=== PATIENT | female | born 1965 | race Caucasian/White ===

== ENCOUNTER 2016-09-03 22:48 | Emergency (ER) | payer OTHER ==
[~2016-09-03] VITALS: Ht 165.1 cm; Wt 45.4 kg
[~2016-09-03 22:48] MED LIST: BUPR100T4 PO; CEPH-570 PO; FAMO20TA41 PO; HYDR-552 PO; NITR-84 PO; ONDA4TAB8 PO
[2016-09-03] MEDS ORDERED: ONDANSETRON 4 MG/2 ML VIAL IV ONE (23:15)
[2016-09-03 23:32] LABS: CREATININE 0.8 mg/dL (0.6-1.3); POTASSIUM 3.7 mmol/L (3.5-5.1)
[2016-09-03 23:36] LABS: BASOPHILS # (AUTO) 0.1 K/uL (0.0-8.0); BASOPHILS % (AUTO) 0.6 % (0.0-2.0); EOSINOPHILS # (AUTO) 0.1 K/uL (0.0-0.7); EOSINOPHILS % (AUTO) 0.7 % (0.0-7.0); HEMATOCRIT 37.5 % (37-47); HEMOGLOBIN 12.9 G/DL (12.0-16.0); LYMPHOCYTES # (AUTO) 2.4 K/UL (0.8-4.8); LYMPHOCYTES % (AUTO) 22.3 % (20.5-51.5); MEAN CORPUSCULAR HEMOGLOBIN 30.6 UUG (27.0-31.0); MEAN CORPUSCULAR HGB CONC 34 g/dL (32.0-37.0); MONOCYTES # (AUTO) 0.5 K/UL (0.1-1.30); MONOCYTES % (AUTO) 4.5 % (0.0-11.0); NEUTROPHILS # (AUTO) 7.6 K/UL (1.8-8.9); NEUTROPHILS % (AUTO) 71.9 % (38.5-71.5); PLATELET COUNT (AUTO) 339 K/UL (150-450); RED BLOOD CELL COUNT(AUTO) 4.21 MIL/UL (4.2-5.4); WHITE BLOOD COUNT (AUTO) 10.7 K/UL (4.0-11.2)
[2016-09-03 23:38] LABS: BILIRUBIN,DIRECT 0.1 mg/dL (0.0-0.2); BILIRUBIN,TOTAL 0.4 mg/dL (0.2-1.0)
[2016-09-03] MEDS ORDERED: ONDANSETRON 4 MG/2 ML VIAL ONE (23:42)
[2016-09-03] MEDS ORDERED: DIAZEPAM 10 MG/2 ML DISP.SYRIN IV ONE (23:45)
[2016-09-03] MEDS ORDERED: DIAZEPAM 10 MG/2 ML DISP.SYRIN ONE (23:56)
--- NOTE | 2016-09-04 01:11 | NUR ---
Patient discharged to home in stable conditon. Written and verbal after care instructions given. Patient verbalizes understanding of instructions. Ambulated from ER with stable gait. All belongings with patient.
[2016-09-04 01:12] VITALS: BP 128/77
== END 2016-09-04 01:14 | disposition home or self-care (01) ==
LOC: ER 22:50
DX: R42 Dizziness and giddiness (principal); R51 Headache; R11.10 Vomiting, unspecified; F10.20 Alcohol dependence, uncomplicated
CPT/HCPCS: 36415; 70030-TC; 70450; 83605; 84703; 85025; 85730; 87040; 93005; A4663; J2405; J3360